=== PATIENT | female | born 1940 | race Caucasian/White ===

== ENCOUNTER 2023-12-25 06:22 | Observation (INO) ==
--- NOTE | 2023-11-23 09:44 | PAT Medication Instructions ---
Medication Instructions Date of Service November 23, 2023 Home Medications albuterol sulfate 90 mcg/actuation aerosol inhaler (Ventolin HFA) 1 puff inhalation QID PRN aspirin 81 mg tablet 81 mg PO QAM gabapentin 300 mg tablet 300 mg PO BID gabapentin 300 mg tablet 900 mg PO HS imatinib 400 mg tablet 400 mg PO QAM lorazepam 1 mg tablet 1 mg PO HS lovastatin 40 mg tablet 40 mg PO PM meloxicam 7.5 mg tablet 7.5 mg PO BID montelukast 10 mg tablet 10 mg PO HS multivitamin 1 tab PO QAM prochlorperazine maleate 10 mg tablet 10 mg PO QAM ropinirole 5 mg tablet 5 mg PO HS sodium chloride 5 % eye drops (Rommel 128) 1 drp ophthalmic (eye) BID tramadol 50 mg tablet 50 mg PO Q6H PRN vit C 250 mg-vit E 90 mg-zinc 40 mg-copper 1 ng-pblpfa-zkhieo capsule (PreserVision AREDS-2) 1 tab PO BID ASK your surgeon for instructions meloxicam 7.5 mg tablet 7.5 mg PO BID ASK your prescriber and surgeon aspirin 81 mg tablet 81 mg PO QAM imatinib 400 mg tablet 400 mg PO QAM STOP taking 2 weeks before surgery (or as soon as possible if surgery is within 2 weeks) vit C 250 mg-vit E 90 mg-zinc 40 mg-copper 1 [id number]-fdlctv capsule (Pres erVision AREDS-2) 1 tab PO BID DO NOT take the morning of surgery multivitamin 1 tab PO QAM Take morning of surgery With a small sip of water, OTHERWISE NOTHING TO EAT OR DRINK AFTER MIDNIGHT: albuterol sulfate 90 mcg/actuation aerosol inhaler (Ventolin HFA) 1 puff inhalation QID PRN(use if needed; please bring with you to hospital day of surgery if possible) gabapentin 300 mg tablet 300 mg PO BID prochlorperazine maleate 10 mg tablet 10 mg PO QAM sodium chloride 5 % eye drops (Rommel 128) 1 drp ophthalmic (eye) BID tramadol 50 mg tablet 50 mg PO Q6H PRN(if needed) Take evening before surgery albuterol sulfate 90 mcg/actuation aerosol inhaler (Ventolin HFA) 1 puff inhalation QID PRN(if needed) gabapentin 300 mg tablet 300 mg PO BID gabapentin 300 mg tablet 900 mg PO HS lorazepam 1 mg tablet 1 mg PO HS lovastatin 40 mg tablet 40 mg PO PM montelukast 10 mg tablet 10 mg PO HS ropinirole 5 mg tablet 5 mg PO HS sodium chloride 5 % eye drops (Rommel 128) 1 drp ophthalmic (eye) BID tramadol 50 mg tablet 50 mg PO Q6H PRN(if needed) Other Notes If you have any questions please call us at [phone] or [phone] or [phone] or [phone]
--- NOTE | 2023-12-05 14:35 | Anesthesiology Consultation ---
Date of Service December 05, 2023 Assessment & Plan (1) Encounter for pre-operative examination: Chart Review Chart Review: Acceptable Risk for Surgery (pending final PCP clearance and updated ECHO ) and Patient seen in Pre Admission Testing - Awaiting PCP clearance (Dr. Karimi- [facility])- PCP awaiting preop testing prior to final clearance; please send preop testing along with optimization note to update ECHO prior to surgery secondary to murmur Upon discussin with Dr. Matt - patient is an acceptable candidate for [facility] from anesthesia perspective. Patient is motivated, has good support; pending surgeon's office completes [facility] preop requirements- patient may proceed with outpatient RONA. Per PAT appt on 12/05/23, no recent illness/disease exposures, illness related symptoms, or recent illness/disease positive tests. Will leave to surgeon's discretion if preop Covid testing needed Patient seen by PCP 11/29/23= patient seen for preop evaluation. Order for lift chair placed. Pending review of preop testing next week prior to final clearance. Teaching & Discussion Pre-Anesthesia Teaching/Discussion Notes: Instructed NPO after midnight before surgery,except medications with 15 cc of water. Medication instructions provided according to the PAT guidelines. History Surgery Operation Date: 12/25/23 09:10 Proposed Procedures p Right Total Hip Arthroplasty Uncemt Anterior - Baldev Winslow MD Height/Weight Height: 5 ft 2 in Weight: 62.7 kg Allergies Allergy/AdvReac Type Severity Reaction Status Date / Time ceftriaxone [From Rocephin] Allergy Mild Rash Verified 11/22/23 13:51 naproxen Allergy Mild Rash Verified 11/22/23 13:51 Medications Home Medications Medication Instructions Recorded Confirmed Last Taken albuterol sulfate 90 mcg/actuation 1 puff inhalation QID PRN prn 11/22/23 11/22/23 Unknown aerosol inhaler (Ventolin HFA) aspirin 81 mg tablet 81 mg PO QAM 11/22/23 11/22/23 Unknown gabapentin 300 mg tablet 300 mg PO BID 11/22/23 11/22/23 Unknown gabapentin 300 mg tablet 900 mg PO HS 11/22/23 11/22/23 Unknown imatinib 400 mg tablet 400 mg PO QAM 11/22/23 11/22/23 Unknown lorazepam 1 mg tablet 1 mg PO HS 11/22/23 11/22/23 Unknown lovastatin 40 mg tablet 40 mg PO PM 11/22/23 11/22/23 Unknown meloxicam 7.5 mg tablet 7.5 mg PO BID 11/22/23 11/22/23 Unknown montelukast 10 mg tablet 10 mg PO HS 11/22/23 11/22/23 Unknown multivitamin 1 tab PO QAM 11/22/23 11/22/23 Unknown prochlorperazine maleate 10 mg 10 mg PO QAM 11/22/23 11/22/23 Unknown tablet ropinirole 5 mg tablet 5 mg PO HS 11/22/23 11/22/23 Unknown sodium chloride 5 % eye drops 1 drp ophthalmic (eye) BID 11/22/23 11/22/23 Unknown (Rommel 128) tramadol 50 mg tablet 50 mg PO Q6H PRN prn 11/22/23 11/22/23 Unknown vit C 250 mg-vit E 90 mg-zinc 40 1 tab PO BID 11/22/23 11/22/23 Unknown mg-copper 1 ll-zsztny-hszlti capsule (PreserVision AREDS-2) Past Medical History Medical History (Updated 12/06/23 @ 11:56 by Ruthie Stout PA-C) Chronic obstructive pulmonary disease Stable and controlled Hx of compression fracture of spine 11/2022, treated conservatively Hyperlipidemia Leukemia CML- follows with Truong Loving (in [facility]) Lumbar spinal stenosis Macular degeneration of both eyes Osteoarthritis Exercise / Class Metabolic Activity III < 4 Walking/Shop/Light housework (no chest pain or SOB - with flat surface ambulation - uses cane ambulate ) Past Surgical History Surgical History History of hysterectomy Hx of colonoscopy Past Anesthesia History No Hx of Anesthesia Complications and No Family Hx of Anesthesia Complications History of PONV No Hx of PONV and No Hx of Motion Sickness Social History Smoking Status: Never smoker Do You Dip or Chew Tobacco: No Hx Alcohol Use: No Hx Substance Use: No substance use type: does not use Review of Systems - Unknown snoring - sleeps alone Patient denies chest pain, shortness of breath, dyspnea on exertion, reflux, cough, wheezing, palpitations. No hx of seizures, stroke, NV. No hx of blood clots or blood transfusions Physical Exam Vital Signs VITALS BP 136/78 P 63 TEMP 97.4 SP02 98% RESP 16 Constitutional no acute distress ENMT Mouth: no TMJ clicking Thyromental Distance: > or= 3.5 Finger Breadths (3.5) Mallampati Class: II Mouth / Teeth: 2 1. Missing 2. Missing 3. Missing 4. Missing Top four front teeth present (remaining top teeth missing) Bottom teeth- see picture and missing side teeth and molars Neck + limited neck extension Respiratory normal respiratory effort; no respiratory distress Auscultation: lungs clear to auscultation bilaterally; no wheezes Cardiovascular Rate/Rhythm: regular rate and regular rhythm Heart Sounds: + murmur (II-III/ murmur ) Vessels: no carotid bruit Musculoskeletal Spine: no pain with cervical ROM Extremities: extremities normal to inspection Psychiatric Orientation: alert Lab Results Anesthesia Preop Results Results Anesthesia Widget: 2 WBC 5.13 K/ul (4.8-10.8) 12/05/23 Hgb 11.4 g/dl (12.0-16.0) L 12/05/23 Hct 34.1 % (37.0-47.0) L 12/05/23 Plt 211 K/uL (130-400) 12/05/23 Na 141 mmol/L (136-145) 12/05/23 K 3.9 mmol/L (3.5-5.1) 12/05/23 Cl 105 mmol/L (98-107) 12/05/23 CO2 31 mmol/L (21-32) 12/05/23 BUN 13 mg/dl (6-23) 12/05/23 Creat 0.77 mg/dl (0.6-1.2) 12/05/23 Glucose Level 90 mg/dl (70-99(Fasting)) 12/05/23 PT 10.7 Seconds (9.0-12.0) 12/05/23 PTT 28 Seconds (21-31) 12/05/23 INR 1.0 (0.9-1.1) 12/05/23 Urine Color Yellow 12/05/23 Urine Appearance Clear (Clear) 12/05/23 Urine pH 7.0 (4.5-7.5) 12/05/23 Urine Specific [place] 1.006 (1.000-1.030) 12/05/23 Urine Protein Negative (Negative) 12/05/23 Urine Glucose (UA) Negative (Negative) 12/05/23 Urine Ketones Negative (Negative) 12/05/23 Urine Blood Negative (Negative) 12/05/23 Urine Nitrite Negative (Negative) 12/05/23 Urine Bilirubin Negative (Negative) 12/05/23 Urine Urobilinogen Negative (Negative) 12/05/23 Urine Leukocyte Esterase Negative (Negative) 12/05/23 Blood Type AB Positive 12/05/23 Antibody Screen NEGATIVE 12/05/23 Testing Electrocardiogram Date: 08/18/23 Sinus rhythm at 67bpm Septal infarction, of indeterminate age. Compared to tracing dated 3PR interval has decreased, criteria for LVH no longer present per cardio (Had subsequent negative nuclear stress test 08/29/23) Chest X-Ray Date: 12/05/23 FINDINGS: No pneumothorax. No pleural effusions. No focal lung consolidations to suggest a pneumonia. No evidence for pulmonary edema. The heart is normal in size. Mild calcified plaque within the aortic knob. There is a severe anterior wedge-shaped compression deformity within the mid thoracic spine. This is technically age indeterminate but likely chronic. IMPRESSION: 1. No acute process within the chest. 2. Severe compression deformity within the mid thoracic spine. This is likely chronic. Stress Test Date: 08/29/23 Type: nuclear Myocardial perfusion imaging: Normal. SPECT images demonstrate normal radiotracer uptake across all myocardial segments during both rest and stress imaging. Gated SPECT: The calculated LVEF is 73% LV global systolic function is normal. No LV regional wall motion abnormality.
--- NOTE | 2023-12-20 15:32 | History & Physical Report ---
Date of Service December 20, 2023 Assessment & Plan (1) Degenerative joint disease of right hip: Plan: Right cemented total hip replacement with dual mobility socket possible same-day surgery [facility] home health agency History of Present Illness Chief Complaint: Right hip pain Primary Care Provider: Heavenly Unger 83-year-old female with greater than 1 year history of right hip and groin pain. The patient does have an extensive spine history. But the hip and groin pain has been associated with decreased range of motion this weakness instability. The patient cannot tie her shoe and sock she requires a walker and/or cane for all activities of daily living. She has tried and failed intra-articular injections and has radiographic evidence of end-stage arthritis of the hip with moderate osteopenia. Allergies Allergy/AdvReac Type Severity Reaction Status Date / Time ceftriaxone [From Rocephin] Allergy Mild Rash Verified 11/22/23 13:51 naproxen Allergy Mild Rash Verified 11/22/23 13:51 Home Medications Medication Instructions Recorded Confirmed Type albuterol sulfate 90 mcg/actuation 1 puff inhalation QID PRN prn 11/22/23 11/22/23 History aerosol inhaler (Ventolin HFA) aspirin 81 mg tablet 81 mg PO QAM 11/22/23 11/22/23 History gabapentin 300 mg tablet 300 mg PO BID 11/22/23 11/22/23 History gabapentin 300 mg tablet 900 mg PO HS 11/22/23 11/22/23 History imatinib 400 mg tablet 400 mg PO QAM 11/22/23 11/22/23 History lorazepam 1 mg tablet 1 mg PO HS 11/22/23 11/22/23 History lovastatin 40 mg tablet 40 mg PO PM 11/22/23 11/22/23 History meloxicam 7.5 mg tablet 7.5 mg PO BID 11/22/23 11/22/23 History montelukast 10 mg tablet 10 mg PO HS 11/22/23 11/22/23 History multivitamin 1 tab PO QAM 11/22/23 11/22/23 History prochlorperazine maleate 10 mg 10 mg PO QAM 11/22/23 11/22/23 History tablet ropinirole 5 mg tablet 5 mg PO HS 11/22/23 11/22/23 History sodium chloride 5 % eye drops 1 drp ophthalmic (eye) BID 11/22/23 11/22/23 History (Rommel 128) tramadol 50 mg tablet 50 mg PO Q6H PRN prn 11/22/23 11/22/23 History vit C 250 mg-vit E 90 mg-zinc 40 1 tab PO BID 11/22/23 11/22/23 History mg-copper 1 qm-sjsmtz-rxsrpj capsule (PreserVision AREDS-2) Past Med/Surg History Medical History Hx of compression fracture of spine 11/2022, treated conservatively Lumbar spinal stenosis Osteoarthritis Leukemia CML- follows with Truong Inder (in [facility]) Macular degeneration of both eyes Hyperlipidemia Chronic obstructive pulmonary disease Stable and controlled Surgical History History of hysterectomy Hx of colonoscopy Social History Smoking Status: Never smoker Second Hand Exposure: No; Do You Dip or Chew Tobacco: No; Hx Alcohol Use: No Hx Substance Use: No Preferred Language: Lithuanian Sample Worker Required: No Beliefs That Will Affect Care: None Current Living Situation: Family Feels Safe at Home: Yes Assistive Devices: Cane and Glasses Review of Systems Review of Systems: Hip and groin pain Physical Exam Physical Exam: Weight 61 kg BMI 25 General: Thin statured elderly woman who appears her stated age HEENT: NCAT EOMI, neck: Without bruits Heart: Regular rate and rhythm no murmurs Lungs: Breath sounds clear and present in all patel Abdomen: Flat soft nontender bowel sounds positive Extremities: Right hip is 3 mm shorter than the left, passive range of motion 5 to 90 degrees flexion 0 degrees internal rotation all which reproduces groin pain. Neurological and vascular: Intact Results & Data Results & Data Vital Signs (Past 12 Hours) Blood pressure 124/78 Pulse 65
[~2023-12-25 06:22] MED LIST: MEPIVACAINE HCL 1.5% 30 ML VIAL ONE
[2023-12-25] MEDS ORDERED: MIDAZOLAM HCL 1 MG/ML 2ML VIAL ONE (07:23)
[2023-12-25] MEDS: LR 500ML BOLUS, THEN 15ML/HR IV SCH (07:44)
[2023-12-25] MEDS: traMADol HCL 50 MG TABLET PO SCH (08:04)
[2023-12-25] MEDS: ACETAMINOPHEN 500 MG TAB PO SCH ×2 (08:04→15:08)
[2023-12-25] MEDS: GABAPENTIN 300 MG CAP PO SCH ×3 (08:05→20:55)
[2023-12-25] MEDS: FAMOTIDINE 20 MG TAB PO SCH (08:05)
[2023-12-25] MEDS: METOCLOPRAMIDE HCL 10 MG TABLET PO SCH (08:05)
[2023-12-25] MEDS: LR 60ML/HR IV SCH (08:05)
[2023-12-25] MEDS: dexAMETHasone**PF** 10 MG/ML VIAL IV SCH (08:05)
--- NOTE | 2023-12-25 08:22 | History & Physical Bridge Note ---
Date of Service December 25, 2023 History & Physical Bridge Note I have examined the patient, reviewed the History & Physical and in the interval since the performance of the History & Physical I have noted the following changes of clinical significance: no changes noted
[2023-12-25] MEDS ORDERED: ONDANSETRON INJ 2 MG/ML 2 ML VIAL IV PRN ×2 (08:50→13:57)
[2023-12-25] MEDS ORDERED: ePHEDrine sulfate 50 MG/ML AMP IV PRN (08:50)
[2023-12-25] MEDS ORDERED: ATROPINE SULFATE 0.1 MG/ML 10ML SYR IV PRN (08:50)
[2023-12-25] MEDS ORDERED: fentaNYL citrate PF 100 MCG/2 ML VIAL ONE (08:51)
[2023-12-25] MEDS: TRANEXAMIC ACID 1,000 MG **IV Pre-op IV SCH (08:54)
[2023-12-25] MEDS: ceFAZolin 2000MG 2,000 MG/15 ML SYR IV SCH (09:09)
[2023-12-25] MEDS: ROPIV 0.5% 246mg, Ketorolac 30mg, EPINEPHrine 0.5mg in NSS INFIL SCH (09:50)
[2023-12-25] MEDS ORDERED: PROPOFOL IV EMULSION 10 MG/ML 20 ML VIAL IV ONE (09:56)
[2023-12-25] MEDS ORDERED: LIDOCAINE 2% 2 ML VIAL/AMP(20MG/ML) INFIL ONE (09:56)
[2023-12-25] MEDS ORDERED: ONDANSETRON INJ 2 MG/ML 2 ML VIAL ONE (09:56)
[2023-12-25] MEDS ORDERED: ePHEDrine sulfate 50 MG/ML AMP ONE (09:56)
[2023-12-25] MEDS: TRANEXAMIC ACID 1,000 MG **IV Intra-op IV SCH (10:24)
[2023-12-25] MEDS ORDERED: KETOROLAC 30 MG/ML VIAL ONE (10:26)
--- NOTE | 2023-12-25 10:35 | Post Operative Brief Note ---
Immediate Post Op Note v1 Date of Surgery December 25, 2023 Pre & Post Diagnosis Operation Date: 12/25/23 08:55 Pre-Op Diagnosis: Osteoarthritis Right Hip Post-Op Diagnosis: Osteoarthritis Right Hip I identified the patient and participated in the time-out.: Yes Procedure Operation Date: 12/25/23 08:55 Actual Procedures p Right Total Hip Replacement - Anterior Approach, Cemented(Right) - Baldev Winslow MD Surgeon Baldev Winslow MD Chemical Processor Calvin Pierre PACalderon Estimated Blood Loss 50 Findings Consistent with Post-Op Diagnosis
[2023-12-25] MEDS ORDERED: traMADol HCL 50 MG TABLET PO PRN (10:36)
[2023-12-25] MEDS ORDERED: ACETAMINOPHEN 500 MG TAB PO PRN (10:36)
--- NOTE | 2023-12-25 10:42 | Fluoroscopy Report ---
FL hip RT 1V CLINICAL HISTORY: RIGHT HIP COMPARISON STUDY: None. FLUOROSCOPY TIME: 8.4 seconds. Ka, r: 1.00 mGy FLUOROSCOPIC IMAGES: 2 FINDINGS: Fluoroscopy was provided during anterior total right hip arthroplasty. Hardware is intact. No fractures are identified by fluoroscopy. There are no unexpected radiopaque foreign bodies. IMPRESSION: Fluoroscopy provided during total right hip arthroplasty. ACT 112: Negative or not required by law. Electronically signed by: Guzman Padilla M.D. 12/25/2023 10:41 AM
--- NOTE | 2023-12-25 10:46 | Operative Report ---
Post Operative Report Pre & Post Diagnosis Operation Date: 12/25/23 08:55 Pre-Op Diagnosis: Osteoarthritis Right Hip Post-Op Diagnosis: Osteoarthritis Right Hip I identified the patient and participated in the time-out.: Yes Procedure Operation Date: 12/25/23 08:55 Actual Procedures p Right Total Hip Replacement - Anterior Approach, Cemented(Right) - Baldev Winslow MD Surgeon Baldev Winslow MD Hand Roller Calvin Pierre PA-C Estimated Blood Loss 50 Findings Consistent with Post-Op Diagnosis end-stage degenerative disease with chronically inflamed synovial lining and moderate osteopenia Specimens femoral head and bone and cartilage fragments Indications components used: [employer] Polar cemented hip system: Acetabulum size 48 with 25 mm dome screw and Oreo Oxinium liner. Femur size 1 standard offset with 0 neck length 22 mm Oxinium inner dual mobility head Description of Procedure following satisfactory spinal anesthesia the patient was supine on the operating room table. The right leg was placed in the traction device in the left leg in the well-leg purvis. Positioning was then confirmed with fluoroscopy. The leg was prepared with ChloraPrep and draped sterilely. A surgical timeout was performed. An anterior approach was performed in the interval between the sartorius and tensor muscles. The circumflex femoral vessels were identified and coagulated. An anterior capsulotomy was performed exposing the arthritic femoral neck and head. Fluoroscopy was used to confirm femoral neck resection level which was completed and the arthritic femoral head was removed. The acetabular self-retaining retractor was placed. Acetabular preparation was completed with excision of labral and some of the redundant capsular tissue. The acetabulum was reamed under direct vision. A 48 shell was impacted into a healthy bleeding bed in a position of 35 to 40 degrees of abduction and 25 degrees of anteversion confirmed with fluoroscopy. A dome screw was placed followed by the Oreo liner. Local anesthetic was placed. The wound was ir rigated. The femur was placed into a position of external rotation extension and adduction. The femoral canal was identified and was prepared up to a size 1. A trial reduction with a standard offset neck and a 0 neck length inner dual mobility head was performed. Fluoroscopy showed very good fit and fill of the components. Good orientation of the components and jainism of leg length and offset at the level of the lesser trochanter. The hip was dislocated. The trial component removed. A cement restriction plug was placed. The canal was curetted irrigated and dried. The cement and stem have him placed in a warm sterile bath. The cement was vacuum mixed and third- generation cement technique was used to cement a size 1 stem. When the cemented hardened trial reduction again with a 0 head showed similar orientation sizing and leg length and offset. The hip was dislocated. The trial head removed. After irrigation and drying the final dual mobility head of the same size was placed the hip was reduced with fluoroscopy showing similar findings. There was very little bleeding. The wound was irrigated with 500 cc of experience irrigation. The tensor fascia was closed with a running suture of 0 V-Loc as well as the deeper subcutaneous fat layers. The most superficial layer was closed with 3 oh strata fix. Dermabond Prineo and a negative pressure dressing were applied. The patient was returned to her bed in stable condition. Note: Calvin ALEJO was present and assisted throughout due to the complicated nature of this case. He help with preparation and set up, he assisted living assistant throughout. He assisted with hemostasis and exposure throughout the procedure. He also closed the fascial subcutaneous and skin layers and applied the postop dressing. I attest to the content of the Intraoperative Record and any orders documented therein. Any exceptions are noted below.
[2023-12-25] MEDS: fentaNYL citrate PF 100 MCG/2 ML VIAL IV PRN (11:01)
[2023-12-25] MEDS: MEPERIDINE HCL 25 MG/ML CARP/VIAL IV PRN (11:38)
[2023-12-25] MEDS: HYDROmorphone INJ 0.5 MG/0.5 ML SYR IV STA ×6 (11:56→13:19)
--- NOTE | 2023-12-25 13:16 | Anesthesiology Progress Note ---
Date of Service December 25, 2023 Anesthesia Post Procedure Vital Signs Vital Signs: Temp Pulse Pulse Resp BP Pulse Ox O2 Del Method 12/25/23 12:55 74 12 156/71 H 99 Nasal Cannula 12/25/23 12:45 76 22 148/66 H 99 Nasal Cannula 12/25/23 12:35 79 16 148/62 H 99 Nasal Cannula 12/25/23 12:25 78 20 127/74 99 Nasal Cannula 12/25/23 12:15 85 17 148/89 H 100 Nasal Cannula 12/25/23 12:05 85 18 153/62 H 97 Room Air 12/25/23 11:55 85 18 157/90 H 97 Room Air 12/25/23 11:45 87 23 154/67 H 98 Room Air 12/25/23 11:35 90 21 154/76 H 97 Room Air 12/25/23 11:25 85 17 96 Room Air 12/25/23 11:15 80 19 148/61 H 99 Oxymask 12/25/23 11:05 74 13 141/70 H 99 Oxymask 12/25/23 10:55 97.0 F L 82 16 127/74 90 Oxymask 12/25/23 07:44 97.9 F 60 20 119/62 96 Room Air O2 Flow Rate 12/25/23 12:55 2 12/25/23 12:45 2 12/25/23 12:35 2 12/25/23 12:25 2 12/25/23 12:15 2 12/25/23 12:05 12/25/23 11:55 12/25/23 11:45 12/25/23 11:35 12/25/23 11:25 12/25/23 11:15 4 12/25/23 11:05 6 12/25/23 10:55 6 12/25/23 07:44 Pain Intensity Right Hip: Pain Intensity: 10 Transfer of Care Handoff Completed per policy Notes Mental Status: alert / awake / arousable and participated in evaluation Patient Amnestic to Procedure: Yes Nausea / Vomiting: adequately controlled Pain: see Notes below Airway Patency, RR, SpO2: stable & adequate BP & HR: stable & adequate Hydration State: stable & adequate Anesthetic Complications: no major complications apparent and Pt Satisfied with anesthetic care Notes: Patient complaining of 10/10 pain in hip area postoperatively. Patient given multimodal pain regimen with tylenol, ketorolac, dilaudid, fentanyl. Patient stating pain extending to leg. Dr. Winslow made aware that patient not appropriate for d/c home. States he will admit patient for observation and pain control. No parasthesia, leg weakness, incontinence/saddle anesthesia.
[2023-12-25] MEDS ORDERED: NALOXONE HCL 0.4 MG/1 ML VIAL/CARP IV PRN (13:57)
[2023-12-25] MEDS ORDERED: HYDROmorphone INJ 0.5 MG/0.5 ML SYR IV PRN (13:57)
[2023-12-25] MEDS ORDERED: ALBUTEROL HFA 8 GM INHALER INH PRN (13:57)
[2023-12-25] MEDS ORDERED: diphenhydrAMINE 50 MG/ML VIAL IV PRN (13:57)
[2023-12-25] MEDS ORDERED: bisacodyL 10 MG SUPP PR PRN (13:57)
[2023-12-25] MEDS ORDERED: MAGNESIUM HYDROXIDE SUSP 30 ML UDC PO PRN (13:57)
[2023-12-25] MEDS: SODIUM CHLORIDE 0.9% 1,000 ML IV SCH (15:05)
[2023-12-25] MEDS: ceFAZolin 1000MG 1,000 MG/7.5 ML SYR IV SCH (16:55)
[2023-12-25] MEDS ORDERED: ceFAZolin 2000MG 2,000 MG/15 ML SYR IV SCH (17:00)
[2023-12-25] MEDS: ORTHO JOINT ANESTHETIC ONE (18:48)
[2023-12-25] MEDS: HYDROmorphone INJ 1 MG/ML SYRINGE ONE (19:10)
[2023-12-25] MEDS: MEPERIDINE HCL 25 MG/ML CARP/VIAL ONE (19:10)
[2023-12-25] MEDS: ASPIRIN 81 MG ECTAB PO SCH (20:55)
[2023-12-25] MEDS: MONTELUKAST SODIUM 10 MG TABLET PO SCH (20:55)
[2023-12-25] MEDS: LOVASTATIN 20 MG TAB PO SCH (20:55)
[2023-12-25] MEDS: rOPINIRole HCL 2 MG TABLET PO SCH (20:56)
[2023-12-25] MEDS: SENNA 8.6 MG TAB PO SCH (20:56)
[2023-12-25] MEDS: rOPINIRole HCL 1 MG TABLET PO SCH (20:56)
[2023-12-25] MEDS: DOCUSATE SODIUM 100 MG CAP PO SCH (20:56)
[2023-12-25] MEDS: SODIUM CHLORIDE 5% OP SOLN 15 ML BTL OP SCH (20:57)
[2023-12-26] MEDS: oxyCODONE HCL IR 5 MG TAB (IMMEDIATE RELEASE) PO PRN (01:14)
--- NOTE | 2023-12-26 08:03 | Orthopedic Progress Note ---
Date of Service December 26, 2023 Assessment & Plan (1) Degenerative joint disease of right hip: Plan: patient is much improved and pain control. She will be evaluated by physical therapy this morning as long as this is approved she will be discharged to home where she will be followed by [facility]. Today her medication protocol was reviewed as well as hip precautions and activities. She will follow-up in the office in 2 weeks time Admission and Anticipated Discharge Date Admission Date: December 25, 2023 Subjective Postoperative day #1 right total hip replacement Patient was admitted overnight because of pain control mostly with back pain. She is now much more comfortable and voices no complaints. She is able to move her leg in bed tolerating p.o. fluids. Physical Exam Physical Exam: Patient is examined at the bedside Her dressing is clean dry and intact she has minimal soft tissue swelling and she is neurologically and vascularly intact her hip is located. She is weak in hip flexion but again is neurologically and vascularly intact and reports no pain Results & Data Vital Signs (Past 12 Hours) Vital Signs Temp Pulse Resp BP Pulse Ox O2 Del Method 12/26/23 04:00 36.6 C 68 16 151/78 H 98 Room Air 12/25/23 23:56 36.6 C 86 16 132/80 96 Room Air
[2023-12-26] MEDS: MELOXICAM 7.5 MG TAB PO SCH (08:51)
[2023-12-26] MEDS: MULTIVITAMIN TAB PO SCH (08:51)
[2023-12-26] MEDS: PROCHLORPERAZINE MALEATE 10 MG TAB PO SCH (08:52)
[2023-12-26 09:56] LABS: Basophils # (auto) 0.02 K/uL (0.00-0.20); Basophils % (auto) 0.2 %; Eosinophils # (auto) 0.05 K/uL (0.00-0.50); Eosinophils % (auto) 0.6 %; Hemoglobin 9.1 g/dl (12.0-16.0); Immature Granulocytes # (auto) 0.02 K/uL (0.01-0.20); Immature Granulocytes % (auto) 0.2 %; Lymphocytes # (auto) 1.98 K/uL (1.20-3.40); Lymphocytes % (auto) 22.6 %; Mean Corpuscular Hemoglobin 33.3 pg (25.0-34.0); Mean Corpuscular Hgb Conc 33.7 g/dL (32.0-36.0); Mean Corpuscular Volume 98.9 fL (80.0-100.0); Mean Platelet Volume 9.3 fL (9.4-12.4); Monocytes # (auto) 0.44 K/uL (0.11-0.59); Neutrophils # (auto) 6.25 K/uL (1.40-6.50); Neutrophils % (auto) 71.4 %; Platelet Count 191 K/uL (130-400); RDW Coefficient of Variation 14.8 % (11.5-14.5); RDW Standard Deviation 53.6 fL (36.4-46.3); Red Blood Count 2.73 M/uL (4.20-5.40); White Blood Count 8.76 K/ul (4.8-10.8)
[2023-12-26 10:28] LABS: BUN Creatinine Ratio 24.2 (10-20); Est GFR (African American) 95.3 ml/min; Est GFR (Non-African American) 82.3 ml/min; Potassium 3.9 mmol/L (3.5-5.1)
--- NOTE | 2023-12-28 08:42 | Discharge Summary ---
Date of Service December 28, 2023 Admission HPI Per Admitting Provider 83-year-old female with greater than 1 year history of right hip and groin pain. The patient does have an extensive spine history. But the hip and groin pain has been associated with decreased range of motion this weakness instability. The patient cannot tie her shoe and sock she requires a walker and/or cane for all activities of daily living. She has tried and failed intra-articular injections and has radiographic evidence of end-stage arthritis of the hip with moderate osteopenia. Admission Exam Per Admitting Provider Physical Exam: Weight 61 kg BMI 25 General: Thin statured elderly woman who appears her stated age HEENT: NCAT EOMI, neck: Without bruits Heart: Regular rate and rhythm no murmurs Lungs: Breath sounds clear and present in all patel Abdomen: Flat soft nontender bowel sounds positive Extremities: Right hip is 3 mm shorter than the left, passive range of motion 5 to 90 degrees flexion 0 degrees internal rotation all which reproduces groin pain. Neurological and vascular: Intact Principal Diagnosis Right Hip Osteoarthritis Discharge Data Allergies Allergy/AdvReac Type Severity Reaction Status Date / Time sulfamethoxazole Allergy Intermediate Verified 12/25/23 07:37 [From Bactrim] trimethoprim [From Bactrim] Allergy Intermediate Verified 12/25/23 07:37 ceftriaxone [From Rocephin] Allergy Mild Rash Verified 12/25/23 07:37 naproxen Allergy Mild Rash Verified 12/25/23 07:37 Procedures Performed Operation Date: 12/25/23 08:55 Actual Procedures p Right Total Hip Replacement - Anterior Approach, Cemented(Right) - Baldev Winslow MD Ordered Studies 12/25/23 08:55 FL hip RT 1V Routine Hospital Course (1) Degenerative joint disease of right hip: Patient: BUNNY STORM Admit Date: 12/25/23 MR#: [id number] Att Phy: Baldev Winslow MD Acct ID: [id number] Sheela Phy: Heavenly Unger PA-C Date: 1940 Fam Phy: Age: 83 Location: 3W Sex: F Room/Bed: [facility] cc: ~ *NOTICE TO RECEIVING LIBERTARIAN/AGENCY This information is strictly Confidential and protected under [place] law. [place] law prohibits you from making any further disclosure of this information unless further disclosure is expressly permitted by the written consent of the person to whom it pertains or is authorized by law. A general authorization for the release of medical or other information is not sufficient for this purpose. Hospital accepts no responsibility if the information is made available to any other person, INCLUDING THE PATIENT. Date of Service December 26, 2023 Assessment & Plan (1) Degenerative joint disease of right hip: Plan: patient is much improved and pain control. She will be evaluated by physical therapy this morning as long as this is approved she will be discharged to home where she will be followed by [facility]. Today her medication protocol was reviewed as well as hip precautions and activities. She will follow-up in the office in 2 weeks time Admission and Anticipated Discharge Date Admission Date: December 25, 2023 Subjective Postoperative day #1 right total hip replacement Patient was admitted overnight because of pain control mostly with back pain. She is now much more comfortable and voices no complaints. She is able to move her leg in bed tolerating p.o. fluids. Physical Exam Physical Exam: Patient is examined at the bedside Her dressing is clean dry and intact she has minimal soft tissue swelling and she is neurologically and vascularly intact her hip is located. She is weak in hip flexion but again is neurologically and vascularly intact and reports no pain Results & Data Vital Signs (Past 12 Hours) Vital Signs Temp Pulse Resp BP Pulse Ox O2 Del Method 12/26/23 04:00 36.6 C 68 16 151/78 H 98 Room Air 12/25/23 23:56 36.6 C 86 16 132/80 96 Room Air Signed By: <Electronically signed by Baldev Winslow MD> 12/26/23 0803 Created: 12/26/23 0800 The status of this report is Signed. Plan 5 Total Time Total Time Spent Total Time Spent (In Minutes): 5 Discharge Plan Discharge Items Patient Disposition: Home - Home Health Services Reason For Visit: Osteoarthritis Right Hip Discharge Diagnosis: Osteoarthritis Right Hip Activity: Per Instructions section Weightbearing: Full weightbearing Non-emergency contact: Surgeon Call non-emergency contact if: you have any medication questions, your pain is not controlled, your temperature is above 101.5, your wound has increased redness and your wound has increased drainage Follow-up/Referrals: [facility] [employer] [facility] [Outside] (Per surgeon's office) Baldev Winslow MD [Surgeon] - (Follow up with Dr. Winslow or his PA in 2 weeks from the day of surgery for your first post operative visit. ) Heavenly Unger PA-C [Primary Care Provider] - Diet: Regular Addtl Attending Provider Instructions: DR. AGUILAR POST-OP INSTRUCTIONS FOR TOTAL HIP ARTHROPLASTY PLEASE REVIEW PRIOR TO SURGERY Day of Surgery You will be admitted and meet the nursing and anesthesia team. Dr. Winslow will see you and sign your operative side. Anesthesia will place your spinal anesthetic in the pre-op area Your surgery will be performed and last approximately 1 2 hours. Upon waking, you will notice a dressing and ice pack on your hip. You will remain in the recovery room for 1 2 hours, then be transferred to your room in the ambulatory surgical area if you are to go home the same day as your surgery or transferred to the orthopedic floor if you will be staying overnight. Most of Dr. Aguilar total hip patients go home the same day as surg geovani. This depends on how well you feel. Patients generally seem to feel better in their own home environment, and the risk of exposure to bad bugs is much lower. (Your post-operative medications will be sent to your pharmacy approximately 1-2 days prior to your procedure) Day 1 post-op (if you have an overnight stay in the hospital) You will have bloodwork drawn in the morning Physical therapy will evaluate you in the morning. You will start getting out of bed and ambulating with a walker. They will instruct you on hip motion exercises. Use your cold packs as instructed. This will decrease swelling and minimize pain. banking services clerk will discuss your discharge plan. Discharge will generally be around 11am Day 1 post-op (all patients) You will be taking Aspirin 81mg twice for 4 weeks to decrease the risk of a blood clot. You will most likely have a drain and a SORAYA (superficial wound VAC) dressing post-operatively. This will keep your incision dry as well as aid in early healing. The batteries will wear out and the VAC will lose suction around day 6 - 7 post-op. At that time, you may turn off the device and disconnect from the dressing. You must keep the dressing on until your first post- operative visit with Dr. Winslow. If the dressing appears to be saturated, please call our office. Day 2 14 post-op You will have a home nurse visit to assess your status and remove your drain on post-op day 2. You are permitted to shower immediately with the VAC. Do not soak the dressing let the shower flow on your opposite side, and pat dry the plastic. Once the dressing has been removed, you may shower normally with the incision exposed. Do not rub the area simply let soapy water run over the incision and lightly pat dry. Therapy will begin on post-op day 3. Your therapy prescription will be sent to your home therapy company/therapist You should continue doing your home exercises Week 2 post-op and forward You will have your first post-op appointment 2 weeks after surgery which should have been scheduled for you by our office. This appointment will be to check your incision, progression of therapy and pain control. Xrays will be taken to evaluate the prosthesis. You will continue to use a cane or a walker until you feel safe enough to stop using it. You will have a 6-week post-op appointment which should have been scheduled for you by our office. Xrays will be taken to evaluate the prosthesis. You will continue to advance range of motion. By 3 to 4 months after surgery, you should have almost full range of motion and may resume most activities. You may have some pain around the hip with certain activities this is completely normal. You will be scheduled for a 1 year post-op appointment to assess your outcome (sooner if Dr. Winslow feels necessary). Pain: The immediate post-op period after hip replacement surgery can be painful. However, the degree and frequency of the pain is generally much less than knee replacement surgery. You should take your pain medicine as you need it, especially prior to physical therapy and bedtime. Your pain will decrease and you may transition to a milder pain medicine (with less side effects, such as Tylenol) as soon as possible. It is common to have pain at night that interferes with sleep this can last for several months. Pain medicines can cause nausea and constipation do not take more than you need. You may be prescribed one or more of the following MEDICATIONS: 1. Celebrex this controls inflammation and makes pain medications mor effective it will be taken once or twice a day 2. Tylenol a pain medicine that can help to decrease your pain you should take 1000mg three times a day 3. Tramadol a pain medicine that can be taken every 4-6 hours (instead of Oxycodone) as needed to control your pain 4. Oxycodone a VERY strong pain medicine that can be taken every 4-6 hours (instead of Tramadol) as needed to control your pain. This medication has the most side effects and is usually not necessary for hip replacements. 5. Aspirin 81mg blood thinning medication to help minimize the risk of development of blood clots unfortunate side effects of pain medicine include nausea and constipation if you experience these issues or have any questions about your post-op medications, call [facility] at for assistance/advice on how to manage these issues Hip replacement surgery does not require a lot of aggressive physical therapy. Learning to walk safely and obeying hip precautions are most important. While in the hospital, you will be shown a series of home exercises you should perform these exercises 3 4 times daily in addition to physical therapy. After the completion of home therapy (approx.. 2 weeks), most therapy exercises can be done on your own. You should walk several times a day. Try not to be standing for more than an hour at a time during the first 4 weeks post-op as you may experience more swelling. If you develop swelling, you need to elevate your legs/feet at or above the level of your heart. You may progress from a walker to a cane to walking independently as you feel comfortable. Unless it is an emergency, YOUR ARE NOT PERMITTED TO HAVE ANY DENTAL CLEANING/WORK UNTIL 3 MONTHS AFTER SURGERY. You will be required to take an antibiotic prior to any dental cleaning or dental work in order to prevent your joint prothesis from getting infected. This medication is a one time per visit dose to be taken one hour prior to appointment. You may call our office for this prescription or your dentist may be willing to prescribe the medication. Remember to contact [facility] at if you develop any signs of infection which include increased swelling, pain, redness, drainage from incision, warmth, fever, chills or severe pain unrelieved by pain medication. If you develop any chest pain or shortness of breath, you should proceed immediately to the nearest Emergency Room. It is normal to run a low-grade fever after surgery. If your fever is consistent at 101.0 or higher, you will need to contact the office. Stand-Alone Forms: [facility] Medications and DC Order Prescriptions: Continued multivitamin Tablet 1 tab PO QAM sodium chloride [Rommel 128] 5 % Drops 1 drp OPHTHALMIC (EYE) BID lovastatin 40 mg Tablet 40 mg PO PM prochlorperazine maleate 10 mg Tablet 10 mg PO QAM montelukast 10 mg Tablet 10 mg PO HS lorazepam 1 mg Tablet 1 mg PO HS albuterol sulfate [Ventolin HFA] 90 mcg/actuation Hfa Aerosol Inhaler 1 puff INHALATION QID PRN (Reason: prn) ropinirole 5 mg Tablet 5 mg PO HS Rx Instructions: administer 1-3 hours before bedtime imatinib 400 mg Tablet 400 mg PO QAM gabapentin 300 mg Tablet 300 mg PO BID gabapentin 300 mg Tablet 900 mg PO HS PreserVision AREDS-2 250-90-40-1 mg Capsule 1 tab PO BID Held aspirin 81 mg Tablet 81 mg PO QAM Hold Instructions: You will be taking your Aspirin twice daily for 4 weeks after your surgery for your anticoagulation protocol. You will resume your once daily dosing of your aspirin after that 4 week period is over. Discontinued tramadol 50 mg Tablet 50 mg PO Q6H PRN (Reason: prn) meloxicam 7.5 mg Tablet 7.5 mg PO BID Krames/Other Patient Handouts: DVT Post Op Prevention Admission Data Admit Date/Time: 12/25/23 13:00 Attending Provider: Baldev Winslow Admit Provider: Baldev Winslow Primary Care Provider: Heavenly Unger Other Providers: [facility],Home Health Other Interventions: Discharge Summary Assessment (RN) Last Done: 12/26/23 10:30
== END 2023-12-26 12:51 | disposition home health service (06) ==
LOC: ASU 06:22 → 3W 06:22